=== PATIENT | male | born 1995 | race Caucasian/White ===

== ENCOUNTER 2020-11-07 23:32 | Emergency (ER) | payer OTHER, BC, SELFPAY ==
--- NOTE | ~2020-11-07 | XR_ITS ---
EXAMINATION: XR foot LT min 3V DATE: 11/08/2020 00:07 INDICATION: Left foot pain TECHNIQUE: Dorsoplantar, lateral, and 2 oblique views of the left foot were obtained. COMPARISON: None. FINDINGS: There is no fracture, dislocation, or subluxation. The bones, soft tissues, and joint space s are normal. IMPRESSION: 1. No acute osseous abnormality. Reviewed, dictated and finalized at location A.
[2020-11-07 23:37] VITALS: BP 114/64; PULSE 81; RESP 16; TEMP 37.4; O2SAT 97
--- NOTE | 2020-11-07 23:56 | ED.GENADULT ---
HPI - General Adult General Chief complaint: Extremity Injury, Lower Stated complaint: dropped 40lb wt on left foot Time Seen by Provider: 11/07/20 23:43 Source: patient History of Present Illness HPI narrative: Patient is a 25 y/o male complaining of left foot pain starting 4 hours ago after he dropped something on his foot at work. He describes his pain as sharp and rates it as 4/10. There is no alleviating or exacerbating factor. There is no pain radiation. Related Data Allergies Allergy/AdvReac Type Severity Reaction Status Date / Time amoxicillin Allergy Severe nausea Verified 11/07/20 23:33 clavulanic acid Allergy Severe nausea Verified 11/07/20 23:33 Review of Systems Constitutional: Constitutional: Denies chills, Denies fever(s), Denies headache(s) and Denies weakness Eyes: Eyes: Denies blurry vision ENT: Denies headache(s) and Denies neck pain Cardiovascular: Cardiovascular: Denies chest pain and Denies dyspnea Respiratory: Respiratory: Denies cough and Denies dyspnea Gastrointestinal: Gastrointestinal: Denies abdominal pain, Denies diarrhea, Denies nausea and Denies vomiting Genitourinary: Genitourinary: Denies hematuria and Denies dysuria Musculoskeletal: Musculoskeletal: Denies back pain, Denies neck pain and Reports other (left foot pain) Neurologic: Denies headache(s) and Denies weakness Exam Const: General: no acute distress and well developed Orientation/consciousness: oriented to person, oriented to place, oriented to time and patient oriented x3 HENMT: Head: normocephalic Ears: external ears normal General nose exam: Normal external nose present Eyes: General: appearance normal, both eyes and all related structures Conjunctivae: conjunctivae normal Neck: Neck: normal visual inspection and full ROM Chest: Chest palpation & inspection: tenderness Skin: General skin exam: normal color and turgor normal Neuro: General: oriented to person, oriented to place, oriented to time and patient oriented x3 Cognition (Neuro): normal cognition Extrem: General: normal to inspection, full ROM and no pedal edema Left lower extremity: foot Details: no tenderness and no edema Psych: Appearance: grossly normal Mental Status: mental status grossly normal Affect: normal affect Course Vital Signs Vital signs: Vital Signs Temperature 37.4 C 11/07/20 23:37 Pulse Rate 81 11/07/20 23:37 Respiratory Rate 16 11/07/20 23:37 Blood Pressure 114/64 11/07/20 23:37 Pulse Oximetry 97 11/07/20 23:37 Temperature 36.6 C 11/08/20 00:16 Pulse Rate 81 11/08/20 00:16 Respiratory Rate 16 11/08/20 00:16 Blood Pressure 118/72 11/08/20 00:16 Pulse Oximetry 100 11/08/20 00:16 Medical Decision Making Vital Signs Vital Signs: Vital Signs Temperature 37.4 C 11/07/20 23:37 Pulse Rate 81 11/07/20 23:37 Respiratory Rate 16 11/07/20 23:37 Blood Pressure 114/64 11/07/20 23:37 Pulse Oximetry 97 11/07/20 23:37 Temperature 36.6 C 11/08/20 00:16 Pulse Rate 81 11/08/20 00:16 Respiratory Rate 16 11/08/20 00:16 Blood Pressure 118/72 11/08/20 00:16 Pulse Oximetry 100 11/08/20 00:16 Discharge Plan Discharge Clinical Impression: Contusion of foot, left Qualifiers: Encounter type: initial encounter Qualified Code(s): S90.32XA - Contusion of left foot, initial encounter Patient Disposition: Home, Self-Care Condition: Stable Instructions: Foot Contusion (ED) Follow-up/Referrals: Anson,Jonnathan Hardy MD [Primary Care Provider] -
[2020-11-08 00:16] VITALS: BP 118/72; PULSE 81; RESP 16; TEMP 36.6; O2SAT 100
== END 2020-11-08 00:16 | disposition home or self-care (01) ==
PROVIDERS: Emergency Provider Emergency Medicine; PCP Internal Medicine
DX: S90.32XA Contusion of left foot, initial encounter (principal); W20.8XXA Other cause of strike by thrown, projected or falling object, initial encounter
CPT/HCPCS: 73630; 99283